=== PATIENT | male | born 1980 | race Caucasian/White ===

== ENCOUNTER 2020-11-24 11:22 | Emergency (ER) | payer OTHER, SELFPAY ==
--- NOTE | 2020-11-24 11:30 | ED.GENADULT ---
HPI - General Adult General Chief complaint: Skin/Abscess/Foreign Body Stated complaint: possible insect bite right leg Time Seen by Provider: 11/24/20 11:30 Source: patient Mode of arrival: ambulatory Limitations: no limitations History of Present Illness HPI narrative: 40-year-old male patient presents to the [facility] with complaints of right knee and leg pain for the past 2 days. Patient states yesterday he was in bed and had some pajama pants on and felt some kind of sting or a pinch to the top of his knees. Patient states the next day he noticed a little elyssa on the right knee and states that for the last 2 days the area has been getting red, swollen and very painful. Patient states he also has a swollen lymph node up to his groin. Denies taking anything for pain. Denies putting any ice or heat on the area. Denies any fevers, body aches or chills at this time. Related Data Home Medications Medication Instructions Recorded Confirmed bupropion HCl 150 mg PO DAILY 11/24/20 11/24/20 escitalopram oxalate 10 mg PO DAILY 11/24/20 11/24/20 Allergies Allergy/AdvReac Type Severity Reaction Status Date / Time aspirin Allergy Unknown Verified 06/16/13 13:16 Dairy Allergy Mild Uncoded 09/03/18 13:29 Review of Systems Review of Systems: Narrative: CONSTITUTIONAL: Denies fever, chills, or sweats. EYES: Denies visual changes, redness, or discharge. ENT: Denies rhinorrhea, congestion, sore throat, or otalgia. CARDIOVASCULAR: Denies chest pain, palpitations, or edema. RESPIRATORY: Denies cough or dyspnea. GASTROINTESTINAL: Denies abdominal pain, nausea, vomiting, or diarrhea. GENITOURINARY: Denies dysuria or hematuria. SKIN: Denies rash or itching. Positive redness swelling and warmth noted to the right knee MUSCULOSKELETAL: Denies back pain, joint pain, or myalgia. NEUROLOGIC: Denies headache, numbness, or weakness. PSYCHIATRIC: Denies anxiety or depression. [facility] Past Medical History Medical History (Updated 11/24/20 @ 11:45 by GIOVANY Huynh) Anxiety Arthritis Colitis Degenerative disc disease Fractures Right wrist, bottom of foot, right index finger Herniated cervical disc Hypercholesteremia Surgical History Surgical History (Updated 11/24/20 @ 11:32 by GIOVANY Huynh) H/O inguinal hernia repair History of appendectomy Hx of tonsillectomy Family History Family History (Updated 11/24/20 @ 11:32 by GIOVANY Huynh) Other Heart disease Hypertension Social History Social History (Updated 11/24/20 @ 11:32 by GIOVANY Huynh) Smoking status: Current every day smoker Tobacco type: e-cigarettes/vaping Alcohol intake: current Gender identity (if verbalized by the patient): Male Comments At the time of my signature I agree with nursing past medical history, surgical, social, and family history. There is no relevant family history pertinent to the presenting complaint. Exam Narrative: Exam Narrative: GENERAL: Well-appearing, well-nourished, and in no acute distress. HEAD: Normocephalic, atraumatic. EYES: PERRLA and EOMI. ENT: Nares clear, no rhinorrhea or epistaxis. Mucous membranes moist. NECK: Supple. No lymphadenopathy CHEST: Clear to auscultation. No respiratory distress. HEART: Regular rate and rhythm. No murmur heard. Normal peripheral pulses. ABDOMEN: Soft, nontender, nondistended, normal active bowel sounds. EXTREMITIES: Normal range of motion. No edema. SKIN: Warm, dry, no rash. Patient has what appears to be a little punctate elyssa with a little erythemic scabbing around it that measures approximately 0.25 cm to the proximal knee. There is some surrounding erythema and warmth noted that measures approximately 11 cm. NEURO: No focal deficits. Alert and oriented x3. Course Vital Signs Vital signs: Vital Signs Temperature 36.1 C L 11/24/20 11:34 Pulse Rate 93 11/24/20 11:34 Respiratory Rate 16 11/24/20 11:34 Blood Pressure 115/75 11/24/20 11
[2020-11-24 11:34] VITALS: BP 115/75; PULSE 93; RESP 16; TEMP 36.1; O2SAT 97
== END 2020-11-24 11:50 | disposition home or self-care (01) ==
PROVIDERS: Emergency Provider Nurse Practitioner Family
DX: L03.115 Cellulitis of right lower limb (principal); F17.200 Nicotine dependence, unspecified, uncomplicated; M19.90 Unspecified osteoarthritis, unspecified site; E78.00 Pure hypercholesterolemia, unspecified; F41.9 Anxiety disorder, unspecified
CPT/HCPCS: 99213; G0463

== ENCOUNTER 2021-01-21 08:30 | Outpatient (CLI) | payer OTHER, SELFPAY | END 2021-01-21 08:31 | disposition home or self-care (01) | LOC: ANHAUDIO 08:32 | PROVIDERS: Visit Provider Otolaryngology | DX: H91.90 Unspecified hearing loss, unspecified ear (principal); H72.91 Unspecified perforation of tympanic membrane, right ear; H69.83 Other specified disorders of Eustachian tube, bilateral | CPT/HCPCS: 92557; 92567 ==

== ENCOUNTER 2021-06-10 10:10 | Emergency (ER) | payer OTHER, SELFPAY ==
--- NOTE | ~2021-06-10 | XR_ITS ---
EXAMINATION: XR foot LT min 3V DATE: 06/10/2021 10:29 INDICATION: Right foot pain TECHNIQUE: Dorsoplantar, lateral, and 2 oblique views of the left foot were obtained. COMPARISON: 01/15/2009 FINDINGS: Posterior and plantar calcaneal enthesophytes are noted. There is no fracture. Bone alignme nt is normal. The joint spaces are unremarkable. The soft tissues are normal. IMPRESSION: 1. No acute osseous abnormality. Reviewed, dictated and finalized at location B.
[2021-06-10 10:17] VITALS: BP 129/97; PULSE 73; RESP 18; TEMP 36.5; O2SAT 98
--- NOTE | 2021-06-10 10:27 | ED.EXTPRO ---
HPI - Extremity Problem General Chief complaint: Extremity Problem,Nontraumatic Stated complaint: Left Ankle Pain Time Seen by Provider: 06/10/21 10:19 Source: patient Mode of arrival: ambulatory Limitations: no limitations History of Present Illness HPI Narrative: Patient is a 40 year old male who presents complaining of left foot pain x 1 day. He reports increased pain with ambulation. Denies known injury but does report doing yardwork yesterday. He denies significant medical history. Reports he currently is a smoker and drinks alcohol occasionally. He reports tenderness with palpation of heel. No redenss or warmth noted, mild edema. Patient denies taking otc medications for pain prior to arrival. Related Data Home Medications Medication Instructions Recorded Confirmed bupropion HCl 150 mg PO DAILY 11/24/20 04/25/21 lubiprostone [Amitiza] mcg PO 06/10/21 Allergies Allergy/AdvReac Type Severity Reaction Status Date / Time aspirin Allergy Unknown Unknown Verified 06/10/21 11:00 Dairy Allergy Mild Unknown Uncoded 04/25/21 08:15 Review of Systems Review of Systems: Narrative: CONSTITUTIONAL: Denies fever, chills, or sweats. EYES: Denies visual changes, redness, or discharge. ENT: Denies rhinorrhea, congestion, sore throat, or otalgia. CARDIOVASCULAR: Denies chest pain, palpitations, or edema. RESPIRATORY: Denies cough or dyspnea. GASTROINTESTINAL: Denies abdominal pain, nausea, vomiting, or diarrhea. GENITOURINARY: Denies dysuria or hematuria. SKIN: Denies rash or itching. MUSCULOSKELETAL: Reports left foot pain at heel, pain with ambulation NEUROLOGIC: Denies headache, numbness, dizziness, or weakness. PSYCHIATRIC: Denies anxiety or depression. [facility] Past Medical History Medical History Anxiety Arthritis Colitis Degenerative disc disease Fractures Right wrist, bottom of foot, right index finger Herniated cervical disc Hypercholesteremia Surgical History Surgical History H/O inguinal hernia repair History of appendectomy Hx of tonsillectomy Family History Family History Grandparent Cancer Grandparent Cancer Other Heart disease Hypertension Social History Social History (Updated 06/10/21 @ 10:34 by GIOVANY Briceño) Smoking status: Current every day smoker Tobacco type: e-cigarettes/vaping Alcohol intake: current Substance use: never Gender identity (if verbalized by the patient): Male Comments At the time of signature, I have reviewed and agree with nursing past medical, surgical, social, and family history unless otherwise noted. Please see nursing chart for further information. There is no relevant family history pertinent to the presenting complaint. Exam Narrative: Exam Narrative: GENERAL: Well-appearing, well-nourished, and in no acute distress. HEAD: Normocephalic, atraumatic. EYES: EOMI. No redness or drainage. Conjunctiva are normal. ENT: Mucous membranes pink and moist. CHEST: No respiratory distress. HEART: Regular rate and rhythm. EXTREMITIES: Normal range of motion. Tenderness with palpation to heel left foot, mild edema noted, no erythema or warmth. SKIN: Warm, dry, no rash. NEURO: No focal deficits. Alert and oriented x3. Gait steady. PSYCH: Normal affect. No signs of depression or anxiety. Course Vital Signs Vital signs: Vital Signs Temperature 36.5 C 06/10/21 10:17 Pulse Rate 73 06/10/21 10:17 Respiratory Rate 18 06/10/21 10:17 Blood Pressure 129/97 H 06/10/21 10:17 Pulse Oximetry 98 06/10/21 10:17 Temperature 36.5 C 06/10/21 10:17 Pulse Rate 73 06/10/21 10:17 Respiratory Rate 18 06/10/21 10:17 Blood Pressure 129/97 H 06/10/21 10:17 Pulse Oximetry 98 06/10/21 10:17 Reviewed. Patient has been instructed to follow-up with his PCP regarding his bloo
[2021-06-10 11:45] LABS: Uric Acid 6.7 mg/dL (3.5-8.5)
== END 2021-06-10 12:28 | disposition home or self-care (01) ==
PROVIDERS: Emergency Provider Nurse Practitioner
DX: M79.672 Pain in left foot (principal); E78.00 Pure hypercholesterolemia, unspecified; M19.90 Unspecified osteoarthritis, unspecified site; F41.9 Anxiety disorder, unspecified; F17.290 Nicotine dependence, other tobacco product, uncomplicated
CPT/HCPCS: 36415; 73630; 84550; 99283

== ENCOUNTER 2022-12-10 11:17 | Emergency (ER) | payer OTHER, SELFPAY ==
[2022-12-10 11:56] VITALS: BP 128/82; PULSE 66; RESP 15; TEMP 36.6; O2SAT 97
[2022-12-10 12:42] LABS: Strep Group A RT-PCR NOT DETECTED (Negative)
[2022-12-10 12:51] LABS: Influenza A QL RT-PCR Negative (Negative); Influenza B QL RT-PCR Negative (Negative); SARS-CoV-2 RNA PCR Negative
--- NOTE | 2022-12-10 13:16 | ED.GENADULT ---
HPI - General Adult General Chief complaint: Upper Respiratory Infection Stated complaint: sinus infection Time Seen by Provider: 12/10/22 12:44 Source: patient Mode of arrival: other Limitations: no limitations History of Present Illness HPI narrative: Jose Angel Livingston is a 42 y/o male who presents with complaints of a week long, nasal congestion/ fullness to ears/ cough/fever/ generalized malaise. Related Data Home Medications Medication Instructions Recorded Confirmed bupropion HCl 150 mg 24 hr tablet, 150 mg PO 06/19/22 06/30/22 extended release escitalopram oxalate 10 mg tablet 10 mg PO 06/19/22 06/30/22 Allergies Allergy/AdvReac Type Severity Reaction Status Date / Time aspirin Allergy Unknown Unknown Verified 12/10/22 11:57 Dairy Allergy Mild Unknown Uncoded 12/10/22 11:57 Review of Systems Review of Systems: CONSTITUTIONAL: repots fever, chills, or sweats. EYES: Denies visual changes, redness, or discharge. ENT: Reports nasal congestion, sore throat, and otalgia. CARDIOVASCULAR: Denies chest pain, palpitations, or edema. RESPIRATORY: Reports cough denies dyspnea. GASTROINTESTINAL: Denies abdominal pain, nausea, vomiting, or diarrhea. GENITOURINARY: Denies dysuria or hematuria. SKIN: Denies rash or itching. MUSCULOSKELETAL: Denies back pain, joint pain, or myalgia. NEUROLOGIC: Reports headache,Denies numbness, dizziness, or weakness. PSYCHIATRIC: Denies anxiety or depression. [facility] Past Medical History Medical History Anxiety Arthritis Colitis Degenerative disc disease Fractures Right wrist, bottom of foot, right index finger Herniated cervical disc Hypercholesteremia Surgical History Surgical History H/O inguinal hernia repair History of appendectomy Hx of tonsillectomy Family History Family History Grandparent Cancer Grandparent Cancer Other Heart disease Hypertension Social History Social History Smoking status: Former smoker Tobacco type: e-cigarettes/vaping Alcohol intake: current Substance use: never Gender identity (if verbalized by the patient): Male Exam Narrative: GENERAL: Mildly ill appearing, well-nourished, and in no acute distress. HEAD: Normocephalic, atraumatic. EYES: PERRLA and EOMI. ENT: Nares with rhinorrhea, no epistaxis. Mucous membranes moist. Oropharynx noted to have erythema without tonsillar hypertrophy exudate or other lesions. Left TM bulging with erythema, right TM positive for serous effusion, positive for maxillary and frontal sinus tenderness with palpation NECK: Supple. No adenopathy or masses. No carotid bruits or JVD CHEST: Clear to auscultation. No respiratory distress. No wheezes rales or rhonchi HEART: Regular rate and rhythm. No murmur heard. Normal peripheral pulses. ABDOMEN: Soft, nontender, nondistended, normal active bowel sounds. EXTREMITIES: Normal range of motion. No edema. SKIN: Warm, dry, no rash. NEURO: No focal deficits. Alert and oriented x3. PSYCH: Normal mood and affect. Course Vital Signs Vital signs: Vital Signs Temperature 36.6 C 12/10/22 11:56 Pulse Rate 66 12/10/22 11:56 Respiratory Rate 15 12/10/22 11:56 Blood Pressure 128/82 12/10/22 11:56 Pulse Oximetry 97 12/10/22 11:56 Oxygen Delivery Room Air 12/10/22 11:56 Temperature 36.6 C 12/10/22 11:56 Pulse Rate 66 12/10/22 11:56 Respiratory Rate 15 12/10/22 11:56 Blood Pressure 128/82 12/10/22 11:56 Pulse Oximetry 97 12/10/22 11:56 Oxygen Delivery Room Air 12/10/22 11:56 Medical Decision Making [facility] Narrative Medical decision making narrative: Patient presents with a week long of congestion/ cough/ ear fullness/ sore throat/ fever/ malaise On exam pt is noted to have unlabored respiratio
[2022-12-10] MEDS: AMOXICILLIN/CLAVULANATE K 875-125 MG TAB 1 TABLET PO (13:41)
[2022-12-10] MEDS: ACETAMINOPHEN 500 MG TABLET 1000 MG PO (13:41)
== END 2022-12-10 14:01 | disposition home or self-care (01) ==
PROVIDERS: Family Medicine; Emergency Provider Nurse Practitioner Family
DX: J01.90 Acute sinusitis, unspecified (principal); B96.89 Other specified bacterial agents as the cause of diseases classified elsewhere; F41.9 Anxiety disorder, unspecified; Z87.891 Personal history of nicotine dependence; Z20.822 Contact with and (suspected) exposure to COVID-19
CPT/HCPCS: 87636; 87651; 99283; A9270

== ENCOUNTER 2023-08-04 13:48 | Emergency (ER) | payer OTHER, SELFPAY ==
--- NOTE | ~2023-08-04 | CT_ITS ---
EXAMINATION: CT abdomen pelvis w con DATE: 08/04/2023 18:00 INDICATION: left sided abdominal pain/flank pain TECHNIQUE: Computed tomography (CT) of the abdomen and pelvis was performed with 100 mL Omnipaque-350 intravenous contrast. Automated exposure control and iterative reconstruction technique were employe d. The dose-length product was 686.96 mGy-cm. COMPARISON: 12/14/2016. FINDINGS: Lower thorax: Calcified right lower lobe hamartoma/granuloma. Liver: Normal. Biliary/Gallbladder: Gallbladder is normal. No bile duct dilation. Pancreas: No mass or duct dilation. Spleen: Normal. Adrenals:No mass. Kidneys: No suspicious mass, obstructing stone, or hydronephrosis. GI tract: Mild distal esophageal and gastric wall edema. No small or large bowel dilation. Very mild pericolonic fat stranding involving the descending colon. Surgically absent appendix. Mild diverticul osis. Mesentery/Peritoneum: No ascites, mass, or free air. Retroperitoneum: No mass. Pelvis: Pelvic organs are within normal limits. Soft Tissues: Small uncomplicated fat-containing umbilical and bilateral inguinal hernias Bones: No acute osseous finding. IMPRESSION: Mild esophagitis/gastritis. Pericolonic inflammatory change involving the descending colon, may represent mild colitis or diverti culitis. Reviewed, dictated and finalized at location K. IMPRESSION: Mild esophagitis/gastritis. Pericolonic inflammatory change involving the descending colon, may represent m ild colitis or diverticulitis.
[2023-08-04 14:01] VITALS: BP 144/98; PULSE 64; RESP 20; TEMP 37; O2SAT 99
[2023-08-04 14:20] LABS: Basophils Percent Auto 0.3 % (0.2-1.2); Eosinophils Absolute Auto 0.2 K/mm3 (0-0.3); Eosinophils Percent Auto 2.1 % (0-4.4); Hematocrit 45.9 % (42.0-52.0); Hemoglobin 15.6 g/dL (14.0-18.0); Immature Granulocyte Absolute 0.01 K/mm3 (0.00-0.031); Immature Granulocyte Percent A 0.1 % (0-0.5); Lymphocytes Absolute Auto 2.77 K/mm3 (0.9-3.2); Lymphocytes Percent Auto 39.1 % (18.3-44.2); Mean Corpuscular Hemoglobin 31.8 pg (26-34); Mean Corpuscular Volume 93.5 fl (80-100); Mean Platelet Volume 8.7 fl (7.4-10.4); Monocytes Absolute Auto 0.6 K/mm3 (0.1-0.6); Monocytes Percent Auto 8.2 % (2.6-8.5); Neutrophils Absolute Auto 3.6 K/mm3 (1.3-6.7); Neutrophils Percent Auto 50.2 % (45.5-73.1); Platelet Count Result 177 k/mm3 (150-375); Red Blood Count 4.91 M/mm3 (4.6-6.20); Red Cell Distribution Width 12.4 % (11.5-14.5); White Blood Count 7.1 K/mm3 (4.5-10.0)
[2023-08-04 14:32] LABS: Alanine Aminotransferase 23 U/L (6-50); Albumin Level 4.2 g/dL (3.5-5.1); Alkaline Phosphatase 53 U/L (38-126); Anion Gap 4 mmol/L (8-16); Aspartate Amino Transferase 36 U/L (17-59); Bilirubin,Total 0.7 mg/dL (0.2-1.3); Blood Urea Nitrogen 8 mg/dL (9-20); Calcium 9.2 mg/dL (8.4-10.2); Carbon Dioxide 25 mmol/L (22-30); Chloride 108 mmol/L (98-107); Estimated CRCL calculation 100 ml/min; Estimated Glomerular Filt Rate > 60; Glucose 82 mg/dL (65-110); Sodium 137 mmol/L (137-145)
[2023-08-04 16:46] VITALS: BP 139/87; PULSE 64; RESP 18; TEMP 36.7; O2SAT 100
[2023-08-04 17:08] VITALS: BP 152/92; PULSE 59; RESP 18; O2SAT 100
--- NOTE | 2023-08-04 17:16 | ED.ABDPAIN ---
HPI - Abdominal Pain General Chief Complaint: Urogenital-Male Stated Complaint: flank pain Time Seen by Provider: 08/04/23 17:07 Source: patient Mode of arrival: ambulatory Limitations: no limitations History of Present Illness HPI narrative: This is a 43 year old male that presents to the ER for left sided low back pain/abdominal pain. Ongoing over the last couple of days. No recent injuries or trauma. Reports he was evaluated by another hospital yesterday and told he had a pulled muscle. He has had no relief with the pain medication he was given which prompted him to be seen again. Reports history of diverticulitis. Denies fever, vomiting, diarrhea, or dysuria. Related Data Home Medications Medication Instructions Recorded Confirmed bupropion HCl 150 mg 24 hr tablet, 150 mg PO 06/19/22 06/30/22 extended release escitalopram oxalate 10 mg tablet 10 mg PO 06/19/22 06/30/22 Allergies Allergy/AdvReac Type Severity Reaction Status Date / Time aspirin Allergy Unknown Unknown Verified 08/04/23 17:09 Dairy Allergy Mild Unknown Uncoded 08/04/23 17:09 Review of Systems Review of Systems: CONSTITUTIONAL: Denies fever GASTROINTESTINAL: Reports abdominal pain. Denies nausea, vomiting, or diarrhea. GENITOURINARY: Denies dysuria or hematuria. SKIN: Denies rash MUSCULOSKELETAL: Reports back pain, joint pain, and myalgia. NEUROLOGIC: Denies numbness, or weakness. All systems reviewed & are unremarkable except as noted in HPI and below PMFSH Past Medical History Medical History Anxiety Arthritis Colitis Degenerative disc disease Fractures Right wrist, bottom of foot, right index finger Herniated cervical disc Hypercholesteremia Surgical History Surgical History H/O inguinal hernia repair History of appendectomy Hx of tonsillectomy Family History Family History Grandparent Cancer Grandparent Cancer Other Heart disease Hypertension Social History Social History (Updated 08/04/23 @ 17:17 by Lara Jeronimo PA-C) Smoking status: Former smoker Tobacco type: e-cigarettes/vaping Alcohol intake: current Substance use: current Substance use type: marijuana Gender identity (if verbalized by the patient): Male Exam Narrative: GENERAL: Well-appearing, well-nourished, and in no acute distress. HEAD: Normocephalic, atraumatic. EYES: EOMI. CHEST: Clear to auscultation. No respiratory distress. No wheezes rales or rhonchi HEART: Regular rate and rhythm. No murmur heard. Normal peripheral pulses. ABDOMEN: Soft, nondistended, normal active bowel sounds. Tender to palpation in the left side of the abdomen, without guarding BACK: No midline spinal tenderness EXTREMITIES: Normal range of motion. No edema. SKIN: Warm, dry, no rash. NEURO: No focal deficits. Alert and oriented x3. PSYCH: Normal mood and affect Course Course Emergency Course: Patient was updated on workup and agrees with plan of care Vital Signs Vital signs: Vital Signs Temperature 98.6 F 08/04/23 14:01 Pulse Rate 64 08/04/23 14:01 Respiratory Rate 20 08/04/23 14:01 Blood Pressure 144/98 H 08/04/23 14:01 Pulse Oximetry 99 08/04/23 14:01 Oxygen Delivery Room Air 08/04/23 14:01 Temperature 98.0 F 08/04/23 16:46 Pulse Rate 60 08/04/23 18:42 Respiratory Rate 18 08/04/23 18:42 Blood Pressure 124/84 08/04/23 18:46 Pulse Oximetry 98 08/04/23 18:42 Oxygen Delivery Room Air 08/04/23 14:01 MDM - Abdominal Pain MDM Narrative Medical decision making narrative: Patient presents to the emergency department for left-sided abdominal pain present over the last couple of days. He is afebrile and nontoxic-appearing. His vitals are stable. CBC is without leukocytosis. Metabolic panel without concerning findings. UA without evid
[2023-08-04] MEDS: ONDANSETRON INJ 4 MG/2 ML VIAL IV PUSH (17:25)
[2023-08-04] MEDS: SODIUM CHLORIDE 0.9% IV 1,000 ML 999 ML IV CONT (17:25)
[2023-08-04] MEDS: MORPHINE SULFATE (*CRX) 4 MG/ML INJ IV PUSH (17:25)
[2023-08-04 17:31] VITALS: BP 127/89; PULSE 57; RESP 18; O2SAT 100
[2023-08-04 18:02] LABS: Lipase 552 U/L (23-300)
[2023-08-04 18:18] LABS: Appearance Urine Clear (Clear); Bilirubin Urine Negative (Negative); Blood Urine Negative (Negative); Color Urine Yellow (Yellow); Glucose Urine UA Negative (Negative); Ketones Urine Negative (Negative); Leukocyte Esterase Ur Negative LEU/UL (Negative); Nitrate Urine Negative (Negative); Protein Urine Negative (Negative); Specific Grav Ur 1.019 (1.001-1.035); Urobilinogen Urine 0.2 mg/dL (<2.0); pH Urine 8.5 (5.0-9.0)
[2023-08-04 18:23] LABS: Add Urine Microscopic? NO
[2023-08-04 18:42] VITALS: PULSE 60; RESP 18; O2SAT 98
[2023-08-04] MEDS: FAMOTIDINE 20 MG/2 ML VIAL IV PUSH (18:43)
[2023-08-04 18:46] VITALS: BP 124/84
[2023-08-04] MEDS: AMOXICILLIN/CLAVULANATE K 875-125 MG TAB 1 TABLET PO (19:02)
== END 2023-08-04 19:54 | disposition home or self-care (01) ==
PROVIDERS: Emergency Medicine; Emergency Provider Physician Assistant; PCP Family Medicine
DX: K57.92 Diverticulitis of intestine, part unspecified, without perforation or abscess without bleeding (principal); K20.90 Esophagitis, unspecified without bleeding; E78.00 Pure hypercholesterolemia, unspecified; M19.90 Unspecified osteoarthritis, unspecified site; F41.9 Anxiety disorder, unspecified; Z87.891 Personal history of nicotine dependence
CPT/HCPCS: 36415; 74177; 80053; 81003; 83690; 85025; 96361; 96374; 96375; 99284; A9270; J2270; J2405; J7030; Q9967

== ENCOUNTER 2023-08-21 07:10 | Emergency (ER) | payer OTHER, SELFPAY ==
--- NOTE | ~2023-08-21 | CT_ITS ---
EXAMINATION: CT abdomen pelvis w con DATE: 08/21/2023 08:05 INDICATION: Diverticulitis complication. Upper abdominal pain. Right lower quadrant abdominal pain. TECHNIQUE: Computed tomography (CT) of the abdomen and pelvis was performed with 100 mL Omnipaque 350 intravenous contrast. Automated exposure control and iterative reconstruction technique were employe d. The dose-length product was 633.71 mGy-cm. COMPARISON: CT abdomen and pelvis 08/04/2023 FINDINGS: The visualized portions of the lung bases demonstrate mild atelectasis. A calcified right l meagan nodule is consistent with old granulomatous disease. No pleural effusion. The heart size is sean l. No pericardial effusion. The liver, gallbladder, spleen, pancreas, adrenal glands, and kidneys are normal. There is a left inguinal hernia containing fat. There are no dilated loops of bowel. There a re changes of appendectomy. There are no pathologically enlarged lymph nodes. There is no free intrap eritoneal fluid. There is mild thoracic and lumbar spondylosis. There is mild chronic anterior wedgin g of T11-L1 vertebral bodies. IMPRESSION: 1. Left inguinal hernia containing fat. Reviewed, dictated and finalized at location E.
[2023-08-21 07:15] VITALS: BP 122/84; PULSE 67; RESP 18; TEMP 36.6; O2SAT 99
[2023-08-21 07:37] VITALS: BP 114/79; PULSE 61; RESP 20; TEMP 36.7; O2SAT 95
[2023-08-21 07:38] LABS: Basophils Percent Auto 0.4 % (0.2-1.2); Eosinophils Absolute Auto 0.1 K/mm3 (0-0.3); Eosinophils Percent Auto 2.1 % (0-4.4); Hematocrit 43.8 % (42.0-52.0); Hemoglobin 14.9 g/dL (14.0-18.0); Immature Granulocyte Absolute 0.01 K/mm3 (0.00-0.031); Immature Granulocyte Percent A 0.2 % (0-0.5); Lymphocytes Absolute Auto 1.47 K/mm3 (0.9-3.2); Lymphocytes Percent Auto 27.6 % (18.3-44.2); Mean Corpuscular Hemoglobin 31.8 pg (26-34); Mean Corpuscular Volume 93.4 fl (80-100); Mean Platelet Volume 9.1 fl (7.4-10.4); Monocytes Absolute Auto 0.5 K/mm3 (0.1-0.6); Monocytes Percent Auto 9.8 % (2.6-8.5); Neutrophils Absolute Auto 3.2 K/mm3 (1.3-6.7); Neutrophils Percent Auto 59.9 % (45.5-73.1); Platelet Count Result 149 k/mm3 (150-375); Red Blood Count 4.69 M/mm3 (4.6-6.20); Red Cell Distribution Width 12.2 % (11.5-14.5); White Blood Count 5.3 K/mm3 (4.5-10.0)
--- NOTE | 2023-08-21 07:46 | ED.ABDPAIN ---
HPI - Abdominal Pain General Chief Complaint: Abdominal Pain Stated Complaint: abd pain Time Seen by Provider: 08/21/23 07:40 Source: patient Related Data Home Medications Medication Instructions Recorded Confirmed bupropion HCl 150 mg 24 hr tablet, 150 mg PO 06/19/22 06/30/22 extended release escitalopram oxalate 10 mg tablet 10 mg PO 06/19/22 06/30/22 ciprofloxacin HCl 500 mg tablet mg 08/21/23 famotidine 20 mg tablet mg 08/21/23 metronidazole 500 mg tablet mg 08/21/23 pantoprazole 40 mg tablet,delayed mg PO 08/21/23 release Allergies Allergy/AdvReac Type Severity Reaction Status Date / Time aspirin Allergy Unknown Unknown Verified 08/21/23 07:17 Dairy Allergy Mild Unknown Uncoded 08/21/23 07:17 [facility] Past Medical History Medical History Anxiety Arthritis Colitis Degenerative disc disease Fractures Right wrist, bottom of foot, right index finger Herniated cervical disc Hypercholesteremia Surgical History Surgical History H/O inguinal hernia repair History of appendectomy Hx of tonsillectomy Family History Family History Grandparent Cancer Grandparent Cancer Other Heart disease Hypertension Social History Social History (Updated 08/04/23 @ 17:17 by Lara Jeronimo PA-C) Smoking status: Former smoker Tobacco type: e-cigarettes/vaping Alcohol intake: current Substance use: current Substance use type: marijuana Gender identity (if verbalized by the patient): Male Course Vital Signs Vital signs: Vital Signs Temperature 36.6 C 08/21/23 07:15 Pulse Rate 67 08/21/23 07:15 Respiratory Rate 18 08/21/23 07:15 Blood Pressure 122/84 08/21/23 07:15 Pulse Oximetry 99 08/21/23 07:15 Oxygen Delivery Room Air 08/21/23 07:15 Temperature 36.7 C 08/21/23 07:37 Pulse Rate 61 08/21/23 07:37 Respiratory Rate 20 08/21/23 07:37 Blood Pressure 114/79 08/21/23 07:37 Pulse Oximetry 95 08/21/23 07:37 Oxygen Delivery Room Air 08/21/23 07:15 MDM - Abdominal Pain MDM Narrative Medical decision making narrative: Patient presents with left abdominal pain, started on Cipro and Flagyl recently because of history of diverticulitis/colitis. Physical examination showed mild tenderness and hernia like feeling at the left lower abdomen, I was able to push it in with some relief. Differential diagnosis diverticulitis, colitis, urinary tract infection, hernia,. Work-up today showed left inguinal hernia containing fat. In the ED patient received 1 L of normal saline, Dilaudid 2.5 mg IV, Zofran 4 mg IV. W/ quite improvement. Patient was advised to follow-up with surgery for possible elective hernia repair Differential Diagnosis Differential diagnosis: Likely abdominal pain, calculus of kidney, constipation, diverticulitis and pancreatitis Medical Records Attestation: I reviewed the patient's medical records. Lab Data Attestation: I reviewed the patient's lab results. 08/21/23 07:34 08/21/23 07:34 Labs: Lab Results 08/21/23 Range/Units 07:34 WBC 5.3 (4.5-10.0) K/mm3 RBC 4.69 (4.6-6.20) M/mm3 Hgb 14.9 (14.0-18.0) g/dL Hct 43.8 (42.0-52.0) % MCV 93.4 (80-100) fl MCH 31.8 (26-34) pg MCHC 34.0 (32-36) g/dl RDW 12.2 (11.5-14.5) % Plt Count 149 L (150-375) k/mm3 MPV 9.1 (7.4-10.4) fl Immature Gran % (Auto) 0.2 (0-0.5) % Neut % (Auto) 59.9 (45.5-73.1) % Lymph % (Auto) 27.6 (18.3-44.2) % [place] % (Auto) 9.8 H (2.6-8.5) % Eos % (Auto) 2.1 (0-4.4) % Baso % (Auto) 0.4 (0.2-1.2) % Lymph # (Auto) 1.47 (0.9-3.2) K/mm3 [place] # (Auto) 0.5 (0.1-0.6) K/mm3 Eos # (Auto) 0.1 (0-0.3) K/mm3 Baso # (Auto) 0.0 (0.0-0.1) K/mm3 Abs Immat Gran (auto) 0.01 (0.00-0.031) K/mm3 Absolute Neuts (auto) 3.2 (1.3-6.7) K/mm3 A
[2023-08-21 07:48] LABS: Alanine Aminotransferase 21 U/L (6-50); Albumin Level 4.1 g/dL (3.5-5.1); Alkaline Phosphatase 59 U/L (38-126); Anion Gap 2 mmol/L (8-16); Aspartate Amino Transferase 34 U/L (17-59); Bilirubin,Total 0.5 mg/dL (0.2-1.3); Blood Urea Nitrogen 7 mg/dL (9-20); Calcium 8.8 mg/dL (8.4-10.2); Carbon Dioxide 31 mmol/L (22-30); Chloride 105 mmol/L (98-107); Estimated CRCL calculation 88 ml/min; Estimated Glomerular Filt Rate > 60; Glucose 113 mg/dL (65-110); Lipase 507 U/L (23-300); Potassium 3.4 mmol/L (3.4-5.0); Sodium 138 mmol/L (137-145)
[2023-08-21] MEDS: SODIUM CHLORIDE 0.9% IV 1,000 ML 999 ML IV CONT (08:19)
[2023-08-21] MEDS: ONDANSETRON INJ 4 MG/2 ML VIAL IV PUSH (08:19)
[2023-08-21] MEDS: HYDROmorphone HCL INJ (*CRX) 1 MG/ML SYR 0.5 MG IV PUSH (08:20)
[2023-08-21 09:42] VITALS: BP 115/81; PULSE 66; RESP 16; O2SAT 98
== END 2023-08-21 09:44 | disposition home or self-care (01) ==
PROVIDERS: Emergency Provider Emergency Medicine; PCP Family Medicine
DX: K40.90 Unilateral inguinal hernia, without obstruction or gangrene, not specified as recurrent (principal); E78.00 Pure hypercholesterolemia, unspecified; M19.90 Unspecified osteoarthritis, unspecified site; F41.9 Anxiety disorder, unspecified; Z87.891 Personal history of nicotine dependence
CPT/HCPCS: 36415; 74177; 80053; 83690; 85025; 96361; 96374; 96375; 99284; J1170; J2405; J7030; Q9967

== ENCOUNTER 2023-08-31 01:23 | Day surgery (SDC) | payer OTHER, SELFPAY ==
[2023-08-28 10:13] VITALS: BMI 28.7
--- NOTE | 2023-08-28 10:20 | PC.NURSE ---
Report to the Outpatient Waiting Room, entrance under the green pavilion located off [facility], at time _1100_ on date _[id number]_. Planned Procedure Time: _1pm_. Time changes happen often and if your time is changed the preop area will call you the afternoon before. - You and your visitor will be asked to self-screen and do not enter if you have any COVID symptoms. - A mask is optional within the hospital at this time. Patients may have clear liquids (water, carbonated beverages, clear teas, apple juice) until 3 hours prior to surgery with a maximum of 20 ounces. - No food from midnight until time of surgery Take the following medications with a SIP of water the morning of surgery: __Bupropion, Sertraline and if still taking Cipro and Metronidazole DO NOT STOP ANY OF YOUR OTHER PRESCRIPTION MEDICATIONS PRIOR TO SURGERY ?EXCEPT THE FOLLOWING Medications to discontinue per physician None Date to take last dose Please no make-up, nail sammarinese, hairspray, perfume, deodorant, or body powder the day of surgery. No jewelry (including any body piercings) or valuables the day of surgery, leave them at home. Please take a shower or bath the night before, or the morning of, surgery with an antibacterial soap. Wear comfortable, loose fitting clothing. - Jewelry must be removed prior to entering the operating room. Rings and piercings that are not removed may be cut off. - The hospital will not accept responsibility for valuables. - Please leave all valuables, including medications, at home the day of surgery. If you are going home after surgery, a licensed wrecker driver must drive you home. - NO public transportation without another adult if you receive anesthesia. - We recommend that an adult stay with you for 24 hours following discharge. - We also recommend that you do not drive, make important decision, drink alcoholic beverages, or take any drugs that were not prescribed by your health care provider for at least 24 hours after your discharge time. Follow any additional instructions given to you from your surgeon. If you or anyone in your household have experienced Covid symptoms in the past week, please notify your surgeon or the nurse liaison at the phone number below for possible testing. Telephone instructions given to _Patient__and asked if any additional questions and then verbalized understanding. Patient advised to call surgeon office or pre surgery nurse liaison [phone] if any additional questions.
[2023-08-31] VITALS (10 sets, daily range): BP systolic 95–120; BP diastolic 52–86; PULSE 62–86; RESP 16–20; TEMP 36.4–37.1; O2SAT 94–99
--- NOTE | 2023-08-31 11:25 | P.PNAN_ITS ---
Anes - Initial Pre Proc Eval Procedure: Operation Date: 08/31/23 13:00 Proposed Procedures p Open Left Inguinal Hernia Repair with Mesh - Ramon Gifford MD Date/Time: 08/31/23 11:25 Surgeon: Ramon Gifford MD Pre Op Diagnosis: Lt Ing Hernia Patient Data Age: 43 Gender: M Height: 1.79 m Weight: 92 kg Allergies Allergy/AdvReac Type Severity Reaction Status Date / Time aspirin Allergy Unknown Unknown Verified 08/28/23 10:09 Dairy Allergy Mild Unknown Uncoded 08/28/23 10:09 Home Medications Medication Instructions Recorded Confirmed Type bupropion HCl 150 mg 24 hr tablet, 150 mg PO DAILY 06/19/22 08/28/23 History extended release ciprofloxacin HCl 500 mg tablet 500 mg PO BID 08/21/23 08/28/23 History famotidine 20 mg tablet 20 mg PO BID 08/21/23 08/28/23 History metronidazole 500 mg tablet 500 mg PO TID 08/21/23 08/28/23 History pantoprazole 40 mg tablet,delayed 40 mg PO DAILY 08/21/23 08/28/23 History release sertraline 100 mg tablet 150 mg PO DAILY 08/28/23 08/28/23 History trazodone 100 mg tablet 200 mg PO HS PRN Sleep 08/28/23 08/28/23 History Patient hx anesthesia problems: post op nausea/vomiting Family hx anesthesia problems: none Results Review: All pre-operative results and documents have been reviewed as part of the pre- operative evaluation. [facility] Past Medical History Medical History (Updated 08/27/23 @ 11:10 by Sailaja Philip) Anxiety Arthritis Colitis Degenerative disc disease Depression Fractures Right wrist, bottom of foot, right index finger GERD (gastroesophageal reflux disease) Herniated cervical disc Hypercholesteremia Surgical History Surgical History H/O inguinal hernia repair History of appendectomy Hx of tonsillectomy Family History Family History Grandparent Cancer Grandparent Cancer Other Heart disease Hypertension Social History Social History Smoking packs per day: 1.5 Smoking cigarettes per day: 30.0 Years smoked: 15 Smoking pack-years: 22.50 Smoking status: Former smoker Tobacco type: cigarettes and e-cigarettes/vaping Smoking end date: 08/28/14 Alcohol intake: current Substance use: current Substance use type: marijuana Other substance usage details: daily Living arrangements: with family Gender identity (if verbalized by the patient): Male Spiritual care concerns: No Anes - Eval Final PreProcedure Day of Procedure 08/31/23 11:25 Patient weight: overweight Heart: regular rate and rhythm Lungs: clear to auscultation Airway: Mallampati scale class II Neurological: alert and oriented Last oral intake: >/= 8 hours ASA classification: II Emergent: no Anesthetic plan: proceed Anesthesia type and monitoring: general LMA and ETT and standard monitoring Results Review: All pre-operative results and documents have been reviewed as part of the pre- operative evaluation. Informed Consent: The patient's anesthetic plan and its attendant risks and benefits were discussed with the patient/family/POA. Questions were solicited and answers provided to the satisfaction of the patient/family/P
[2023-08-31] MEDS: LACTATED RINGERS 1,000 ML 30 ML IV CONT ×2 (11:30→15:25)
[2023-08-31] MEDS: SCOPOLAMINE 1.5 MG PATCH TRANSDERM (11:45)
[2023-08-31] MEDS: KETOROLAC 15 MG/ML VIAL (*BKC) IV PUSH ×2 (12:00→15:04)
[2023-08-31] MEDS: ACETAMINOPHEN 500 MG TABLET 1000 MG PO (12:02)
--- NOTE | 2023-08-31 12:05 | WPDHPUPDATE1 ---
History and Physical Update Update Date/Time: 08/31/23 12:05 History and Physical has been reviewed, including an updated exam of the patient. There are NO changes in the patient's condition. Risks, benefits, and alternatives have been discussed and questions answered. Patient agrees to proceed with procedure.
[2023-08-31] MEDS: LIDO 1%/EPINEPHRINE 1:100,000 50 ML VIAL 20 ML INFILTRATE (13:43)
[2023-08-31] MEDS: BUPivacaine HCL 0.5% PF 30 ML VIAL 20 ML INFILTRATE (13:43)
[2023-08-31] MEDS: ceFAZolin 2 GM/D5W 50 ML 2 GM/50 ML BAG IVPB (13:43)
--- NOTE | 2023-08-31 15:21 | W.PM.PROC2 ---
Procedure Note - Detailed Date of Procedure 08/31/23 Pre-op Diagnosis Lt Ing Hernia Post-op Diagnosis Same Procedure Performed Open left inguinal hernia repair with [facility] mesh Surgeon Ramon Gifford MD Mathematics Academic Chair Judith SKELTON Anesthesia General Indications Patient is a 43-year-old gentleman who last several weeks has been having severe left inguinal pain. Had a CT scan performed which showed possible sigmoid diverticulitis so he was treated for that condition with oral antibiotics. Also noted on the CT scan was a small left inguinal hernia with fatty tissue within the hernia sac. The patient has pain that radiates into his left testicle and down his left inner thigh as well. Patient now presents for an open left inguinal hernia repair with mesh reinforcement. Findings Patient a small indirect left inguinal hernia with small hernia sac and small cord lipoma. Description of Procedure After informed consent was obtained patient brought to the operating room was placed supine position and general endotracheal anesthesia was administered. The abdomen left groin region was then prepped and draped in usual sterile fashion. A time-out was then performed correctly identifying the patient as well as procedure to be performed and verifying the site marking. He was getting since perioperative IV antibiotics. I 1st started by making oblique incision in the left groin region about 2 fingerbreadths above the palpated left pubic tubercle. Dissection carried down through the subcutaneous tissues with electrocautery and Victoria's fascia was divided. External oblique aponeurosis was then encountered and the subcutaneous tissue on top the aponeurosis was dissected off with electrocautery. The external ring was identified. I then incised the external oblique aponeurosis along the direction of its fibers with a scalpel and then opened it widely out through the external ring utilizing electrocautery. I then the underlying cremasteric and internal oblique muscle fibers from the undersurface of the external oblique aponeurosis with electrocautery and blunt finger dissection. I then isolated the cord structures at the pubic tubercle with blunt finger dissection and placed a Florentino drain around the cord structures for retraction. I then divided additional cremasteric muscle fibers to further mobilize the cord. I looked at the floor of the inguinal canal and it was intact. I then explored the cord by dividing the cremasteric muscles electrocautery and identified the vas deferens and testicular vessels. These were then preserved without injury. A small indirect inguinal hernia sac and small cord lipoma was identified. This was dissected free the other cord structures. Cord lipoma was resected at the level of the internal ring and ligated with a 2-0 Vicryl suture. The cord lipoma was discarded. The small indirect left inguinal hernia sac was then reduced back into the preperitoneal space of the dilated internal ring. With retractors in place I then with blunt finger and sponge dissection dissected out the preperitoneal space so that the home mild pectineal orifice could be reinforced with a piece of mesh. Once the dissection was complete I then used a large piece of Ultrapro hernia system mesh for the repair. The underlay portion of mesh was placed through the dilated internal ring into the preperitoneal space deep to the inferior epigastric vessels. The underlay portion was brought out widely to cover the whole myopectineal orifice. The connecting cylindrical portion the mesh came out through the dilated internal ring. The overlay portion of mesh was then spread out over the floor of the inguinal canal. The overlay mesh was secured to the pubic tubercle with 2-0 Vicryl suture. A slit was then cut in the tail of the overlay patch to accommodate cord structures. The ends of the tear was then reapproximated around the cord utilizing interrupted 3-0 Vicryl suture
[2023-08-31] MEDS: fentaNYL CITRATE INJ (*CRX) 100 MCG/2 ML VIAL 25 MCG IV PUSH ×3 (15:52→16:03)
[2023-08-31] MEDS: oxyCODONE HCL (*CRX) 5 MG TAB IR PO (16:44)
[2023-08-31] MEDS: LACTATED RINGERS 1,000 ML 100 ML IV CONT (17:22)
[2023-08-31] MEDS: HYDROmorphone HCL INJ (*CRX) 1 MG/ML SYR 0.5 MG IV PUSH (17:40)
== END 2023-08-31 18:15 | disposition home or self-care (01) ==
PROVIDERS: PCP Family Medicine; Visit Provider Surgery
PROC: (CPT 49505; principal; 2023-08-31 13:00)
DX: K40.90 Unilateral inguinal hernia, without obstruction or gangrene, not specified as recurrent (principal); F41.9 Anxiety disorder, unspecified; F32.A Depression, unspecified; K21.9 Gastro-esophageal reflux disease without esophagitis; E78.00 Pure hypercholesterolemia, unspecified; Z87.891 Personal history of nicotine dependence; F12.90 Cannabis use, unspecified, uncomplicated; D17.9 Benign lipomatous neoplasm, unspecified
CPT/HCPCS: 49505; A9270; C1781; J0690; J1100; J1170; J1885; J2250; J2405; J2704; J3010; J7120

== ENCOUNTER 2024-06-08 11:03 | Emergency (ER) | payer OTHER, SELFPAY ==
--- NOTE | ~2024-06-08 | XR_ITS ---
EXAMINATION: XR chest 2V 06/08/2024 11:44 INDICATION: Productive cough PROCEDURE: 2 view chest COMPARISON: 10/07/2007 FINDINGS: The lungs are clear. The cardiomediastinal silhouette is within normal limits. There are no pleural effusions. There is no pneumothorax suspected. IMPRESSION: 1: NO ACUTE CARDIOPULMONARY DISEASE. Reviewed, dictated and finalized at location B.
[2024-06-08 11:16] VITALS: BP 125/84; PULSE 64; RESP 16; TEMP 36.6; O2SAT 99
[2024-06-08 11:17] VITALS: BP 125/84; PULSE 64; RESP 16; TEMP 36.6; O2SAT 99
--- NOTE | 2024-06-08 11:29 | ED.URI ---
HPI - URI/Sore Throat General Chief Complaint: Upper Respiratory Infection Stated Complaint: BUTLER, breathing feels weird, cough Time Seen by Provider: 06/08/24 11:29 Source: patient Mode of arrival: ambulatory Limitations: no limitations History of Present Illness HPI Narrative: 43-year-old male presents with complaint nasal congestion, sinus pressure, headaches, cough, chest congestion for the past 3 days. Patient reports when taking deep breath feels constricted and chest. No chest pain or shortness breath. Patient states symptoms started after he cut of a fiberglass hot tub with his chain saw. It did not wear any type of protective equipment. After finishing he had small pieces of fiberglass all over face, chest, arms. Took shower. Is concerned he may have breathed in some of the fiberglass. Over the past day his been coughing up a bluish, brownish sputum . Patient states the color of his hot tub was blue. All systems reviewed and negative except as noted above. Related Data Home Medications Medication Instructions Recorded Confirmed bupropion HCl 150 mg 24 hr tablet, 150 mg PO DAILY 06/19/22 06/08/24 extended release pantoprazole 40 mg tablet,delayed 40 mg PO DAILY 08/21/23 06/08/24 release sertraline 100 mg tablet 150 mg PO DAILY 08/28/23 06/08/24 Allergies Allergy/AdvReac Type Severity Reaction Status Date / Time aspirin Allergy Unknown Unknown Verified 06/08/24 11:16 Review of Systems Review of Systems: CONSTITUTIONAL: Denies fever, chills, or sweats. EYES: Denies visual changes, redness, or discharge. ENT: reports rhinorrhea, congestion, sore throat. Denies otalgia. CARDIOVASCULAR: Denies chest pain, palpitations, or edema. RESPIRATORY: Reports cough. Denies dyspnea. GASTROINTESTINAL: Denies abdominal pain, nausea, vomiting, or diarrhea. GENITOURINARY: Denies dysuria or hematuria. SKIN: Denies rash or itching. MUSCULOSKELETAL: Denies back pain, joint pain, or myalgia. NEUROLOGIC: Denies headache, numbness, or weakness. PSYCHIATRIC: Denies anxiety or depression. All other systems reviewed are negative, except as documented in HPI. [facility] Past Medical History Medical History Anxiety Arthritis Colitis Degenerative disc disease Depression Fractures Right wrist, bottom of foot, right index finger GERD (gastroesophageal reflux disease) Herniated cervical disc Hypercholesteremia Surgical History Surgical History H/O inguinal hernia repair History of appendectomy Hx of tonsillectomy Family History Family History Grandparent Cancer Grandparent Cancer Other Heart disease Hypertension Social History Social History Smoking packs per day: 1.5 Smoking cigarettes per day: 30.0 Years smoked: 15 Smoking pack-years: 22.50 Smoking status: Former smoker Tobacco type: cigarettes and e-cigarettes/vaping Smoking end date: 08/28/14 Alcohol intake: current Substance use: current Substance use type: marijuana Other substance usage details: daily Living arrangements: with family Gender identity (if verbalized by the patient): Male Spiritual care concerns: No Comments At time of signature, agree with nursing past medical, surgical, social and family history. There is no relevant family history pertinent to the presenting complaint. Exam Narrative: GENERAL: This is a well-nourished, well-developed patient, in no apparent distress. HEAD: normocephalic, atraumatic. EYES: PERRL. Sclera clear/white. Vision is grossly intact. EARS: External ears normal, auditory canals clear and without drainage, TMs normal without perforation. Hearing grossly intact. NOSE: External nose normal with moderate nasal congestion, erythema and swelling to bila
== END 2024-06-08 12:09 | disposition home or self-care (01) ==
PROVIDERS: Emergency Provider Nurse Practitioner Family; PCP Family Medicine
DX: J01.90 Acute sinusitis, unspecified (principal); Z20.822 Contact with and (suspected) exposure to COVID-19; Z87.891 Personal history of nicotine dependence; F12.90 Cannabis use, unspecified, uncomplicated; M19.90 Unspecified osteoarthritis, unspecified site; K21.9 Gastro-esophageal reflux disease without esophagitis; E78.00 Pure hypercholesterolemia, unspecified; F41.9 Anxiety disorder, unspecified; F32.A Depression, unspecified
CPT/HCPCS: 71046; 87426; 99213; G0463